=== PATIENT | male | born 1940 | race African-American/Black ===

== ENCOUNTER 2017-08-11 15:20 | Emergency (ER) | payer MEDICARE, OTHER ==
[2017-08-11] MEDS ORDERED: CEFTRIAXONE 1 GM/D5W RTU 1 GM/50 ML RTUPB IV ONE (16:34)
--- NOTE | 2017-08-11 17:12 | ER Document Report ---
ED General - General Chief Complaint: Wound Infection Stated Complaint: WEAKNESS Time Seen by Provider: 08/11/17 16:32 Notes: Patient said he had a "spell" today about 11 AM to 12 noon. Says he is vomited about 3 or 4 times and is feeling weak. He "dropped his head" which sounds as if he might have passed out. His says he does this whenever he has an injury. He did injure his right hand in the big [place] outside the house when he went to fall Monday. says the hand was dirty with mud. He has a 2 cm laceration of the palmar aspect of the thenar webspace of the right hand.. There is adjacent soft tissue swelling of the hand around the base of the thumb and in the dorsal web space. Patient says the spell lasted anywhere from 30-60 minutes and that he feels much better now. At no time did he have any chest pains, abdominal pain, or headache. Also did not have any fever, although the says that he had sweat on his forehead. TRAVEL OUTSIDE OF THE [place] IN LAST 30 DAYS: No Past Medical History - Social History Smoking Status: Former Smoker Chew tobacco use (# tins/day): No Frequency of alcohol use: None Drug Abuse: None Family History: Reviewed & Not Pertinent Patient has suicidal ideation: No Patient has homicidal ideation: No - Past Medical History Cardiac Medical History: Reports: Other - Has a pacemaker. Endocrine Medical History: Reports: Hx Diabetes Mellitus Type 1 Past Surgical History: Reports: Hx Cardiac Surgery - pacemaker, Hx Kidney ( Renal Surgery) Review of Systems - Review of Systems Notes: REVIEW OF SYSTEMS: CONSTITUTIONAL : Denies fever. Did have some heavy sweats on his brow. EENT: Denies eye, ear, nose or mouth or throat pain or other symptoms. CARDIOVASCULAR: Denies chest pain. RESPIRATORY: Denies cough, chest congestion, or shortness of breath. GASTROINTESTINAL: Denies abdominal pain or nausea, vomiting, or diarrhea. GENITOURINARY: Denies difficulty or painful urinating, urinary frequency, blood in urine. MUSCULOSKELETAL: Denies back or neck pain. Denies joint pain or swelling. Injury/laceration to right hand, as described previously. SKIN: Denies rash or skin lesions. NEUROLOGICAL: Denies LOC or altered mental status. Denies headache. Denies sensory loss or motor deficits. ALL OTHER SYSTEMS REVIEWED AND NEGATIVE. Physical Exam - Vital signs Vitals: Pulse Resp BP Pulse Ox 72 18 119/77 95 08/11/17 15:30 08/11/17 15:30 08/11/17 15:30 08/11/17 15:30 Interpretation: No: Febrile - Notes Notes: PHYSICAL EXAMINATION: GENERAL: Well-appearing, in no acute distress. Alert. Answers questions appropriately. HEAD: Atraumatic, normocephalic. EYES: Pupils equal round and reactive to light, extraocular movements intact. ENT: oropharynx clear without exudates. Moist mucous membranes. NECK: Normal range of motion, supple. No carotid bruits heard. LUNGS: Breath sounds clear and equal bilaterally. HEART: Regular rate and rhythm without murmurs. ABDOMEN: Soft, nontender. No guarding or rebound. No pulsatile masses. BACK: No tenderness throughout entire back. EXTREMITIES: Normal range of motion without pain. He has a 2 cm laceration of the palmar aspect of the thenar webspace of the right hand.. There is adjacent soft tissue swelling of the hand around the base of the thumb and in the dorsal web space. He does not have any pain with forced extension of the flexor tendons to any of the 5 digits of the right hand. The wound does not appear to be draining any purulent or other material. No fluid collection felt. Superficially, there are stains from reddish antiseptic which is probably some iodine-containing preparation, Merthiolate, etc. I do not think this wound is significantly infected, if at all. There is a lot of soft tissue swelling probably from patient keeping his hand too low and overusing it. There is no erythema like cellulitis and no lymphangitis. NEUROLOGICAL: Normal speech, normal gait. Normal sensory, motor, and reflex exams. Awake, alert, and oriented x3. Cranial nerves normal. PSYCH: Normal mood, normal affect. SKIN: Warm, dry, no rashes. Course - Vital Signs Vital signs: Temp Pulse Resp BP Pulse Ox 72 24 H 143/89 H 95 08/11/17 15:30 08/11/17 16:01 08/11/17 16:00 08/11/17 16:01 - Laboratory Result Diagrams: 08/11/17 17:35 08/11/17 17:35 Laboratory results interpreted by me: 08/11/17 17:35 RBC 3.82 L Hgb 12.2 L Hct 36.8 L Lymphocytes % 10.9 L - Diagnostic Test Radiology results interpreted by me: 08/11/17 18:52 Hand x-ray is normal. - EKG Interpretation by Me EKG shows normal: Sinus rhythm Rate: Normal Rhythm: NSR - At 80 Additional EKG results interpreted by me: 08/11/17 18:53 EKG is normal. Discharge - Discharge Clinical Impression: Laceration of right hand, Possible syncopal episode Condition: Stable Disposition: HOME, SELF-CARE Additional Instructions: NON-SUTURED LACERATION: Your laceration did not require suturing. Some lacerations cannot be sutured because of increased infection risk, while others simply don't need stitches because they are shallow or very short. Your injury should be protected while it heals. Usually complete healing takes 10 to 14 days. Keep the dressing clean and dry, and change it every day. If you notice increasing pain, redness, swelling, drainage, or tender lumps in the armpit or groin above the injury, infection may be present. You should call the doctor at once. SOAP CLEANSING: Gently wash the wound daily using a mild soap (like Ivory, Phisoderm, Neutrogena). Use warm water, rubbing gently until all debris, ooze, and crusting have been washed from the wound. Allow to dry briefly (about 10 minutes) after cleaning. Repeat this cleansing at least three times a day for the first two days and then once or twice a day. PROPHYLACTIC ANTIBIOTIC: The antibiotics which have been prescribed are designed to decrease the risk of infection. Only certain types of wounds benefit from this -- the typical cut, scrape, or burn DOES NOT require antibiotics. Of course, infection can still occur despite the use of prophylactic antibiotics. Your wound will heal with less chance of an infectious complication if you take the medication as directed. The most important dose is the FIRST dose, so don't delay filling the prescription! Rocephin You have been given an injection of an antibiotic called Rocephin ( ceftriaxone). Sometimes the injection must be combined with antibiotic pills. For some infections, such as an uncomplicated ear infection, Rocephin provides all the antibiotic that's needed. The antibiotic will be in your body for about two days. For serious infections, we usually repeat doses of Rocephin daily. Side effects are very unusual following a shot. Women may develop vaginal yeast infections, and babies can get yeast (thrush) in the mouth following the use of antibiotics. Contact your physician if you have symptoms with this medication. Allergy to this antibiotic can result in hives, wheezing, faintness, or itching. If symptoms of allergy occur, call the doctor at once. Cephalexin The antibiotic you've been prescribed is a member of the cephalosporin class. This type of antibiotic covers a wide variety of infections, including those of the skin, lungs, and urinary tract. It's useful for staph infections. This antibiotic is slightly similar to the penicillin family. In rare cases , a person who is allergic to penicillin will also be allergic to this medication. If you have had a severe allergic reaction to penicillin, and have not taken this antibiotic since that time, notify your doctor. Antibiotics which cover many germs ("broad spectrum" antibiotics) are more likely to cause diarrhea or "yeast" infections. Women prone to vaginal yeast problems may suffer an attack after taking this antibiotic. In infants, oral thrush (white spots "stuck" on the cheek) or yeast diaper rash may result. See your doctor if these problems occur. Call at once if you develop itching, hives , shortness of breath, or lightheadedness. FOLLOW-UP CARE: If you have been referred to another physician for follow-up care, call that physicians office for an appointment as you were instructed. If you experience a significant change in your laceration, or if you are concerned there may be an infection (swelling, redness, drainage, increasing tenderness, red streaks, tender lumps in the armpit or groin above the laceration, or fever) , return to the Emergency Department immediately re-evaluation. Watch for signs of infection. If the hand begins to swell worse in spite of elevating it, or if you develop redness or red streaks or fever or increasing pain in your hand, return immediately for us to reassess her condition. If your hand is showing no improvement by Monday, return for us to recheck. If your hand is worse over the weekend, do not wait until Monday, but return for us to reassess her hand. If your hand is improving each day, you do not need to return for reevaluation. Prescriptions: Cephalexin Monohydrate [Keflex 500 mg Capsule] 500 mg PO QID 7 Days capsule Referrals: LASHONDA DE LA CRUZ MD [Primary Care Provider] - Follow up as needed
--- NOTE | 2017-08-11 17:41 | RADIOLOGY REPORT (SQ) ---
EXAM DESCRIPTION: HAND RIGHT 3 VIEWS COMPLETED DATE/TIME: 08/11/2017 5:15 pm REASON FOR STUDY: Injured right hand with laceration in web space COMPARISON: None. EXAM PARAMETERS: NUMBER OF VIEWS: Three views. TECHNIQUE: AP, lateral and oblique radiographic images acquired of the right hand. LIMITATIONS: None. FINDINGS: MINERALIZATION: Normal. BONES: No acute fracture or dislocation. No worrisome bone lesions. JOINTS: Diffuse osteoarthritis. SOFT TISSUES: No soft tissue swelling. No foreign body. OTHER: No other significant finding. IMPRESSION: NO RADIOGRAPHIC EVIDENCE OF ACUTE INJURY. TECHNICAL DOCUMENTATION: JOB ID: [id number] [employer]- All Rights Reserved
[2017-08-11 17:50] LABS: ABSOLUTE BASOPHILS # (AUTO) 0.1 10^3/uL (0.0-0.2); ABSOLUTE EOSINOPHILS # (AUTO) 0.1 10^3/uL (0.0-0.6); ABSOLUTE LYMPHOCYTES (AUTO) 0.9 10^3/uL (0.5-4.7); ABSOLUTE MONOCYTES (AUTO) 0.8 10^3/uL (0.1-1.4); ABSOLUTE NEUT (AUTO) 6.1 10^3/uL (1.7-8.2); BASOPHILS % (AUTO) 0.7 % (0-2); HEMATOCRIT 36.8 % (37.9-51.0); HEMOGLOBIN 12.2 g/dL (13.5-17.0); HGB HCT DIFFERENCE -0.2; LYMPHOCYTES % (AUTO) 10.9 % (13-45); MEAN CORPUSCULAR HGB CONC 33.2 g/dL (32.0-36.0); MEAN CORPUSCULAR VOLUME 96 fl (80-97); MONOCYTES % (AUTO) 10.3 % (3-13); RED BLOOD COUNT 3.82 10^6/uL (4.35-5.55); RED CELL DISTRIBUTION WIDTH 13.4 % (11.5-14.0); SEGMENTED NEUTROPHILS % (AUTO) 77.1 % (42-78); WHITE BLOOD COUNT 7.9 10^3/uL (4.0-10.5)
[2017-08-11 19:08] VITALS: BP 146/77
--- NOTE | 2017-08-11 22:51 | EKG REPORT ---
SEVERITY:- ABNORMAL ECG - ATRIAL-SENSED VENTRICULAR-PACED COMPLEXES LEFT ANTERIOR FASCICULAR BLOCK LEFT VENTRICULAR HYPERTROPHY : Confirmed by: Fátima Prince 11-Aug-2017 22:50:48
[2017-08-11 23:30] LABS: CALCIUM 9.3 mg/dL (8.4-10.2); GLUCOSE 231 mg/dL (75-110)
[2017-08-11 23:31] LABS: BLOOD UREA NITROGEN 22 mg/dL (7-20); CARBON DIOXIDE 24 mmol/L (22-30); CHLORIDE 103 mmol/L (98-107); CREATININE RESULT 1.39 mg/dL (0.52-1.25); POTASSIUM 6.2 mmol/L (3.6-5.0)
[2017-08-11 23:32] LABS: ALANINE AMINOTRANSFERASE 33 U/L (21-72); ALBUMIN 3.9 g/dL (3.5-5.0); ALKALINE PHOSPHATASE 82 U/L (38-126); ANION GAP 12 (5-19); ASPARTATE AMINO TRANSFERASE 58 U/L (17-59); BILIRUBIN,DIRECT 1.1 mg/dL (0.0-0.4)
[2017-08-11 23:33] LABS: TOTAL PROTEIN 7.8 g/dL (6.3-8.2)
== END 2017-08-11 19:10 | disposition home or self-care (01) ==
LOC: ER 15:20
DX: S61.411A Laceration without foreign body of right hand, initial encounter (principal); T81.4XXA Infection following a procedure, initial encounter; R11.10 Vomiting, unspecified; L08.9 Local infection of the skin and subcutaneous tissue, unspecified; R53.1 Weakness; M79.89 Other specified soft tissue disorders; Z87.891 Personal history of nicotine dependence; X58.XXXA Exposure to other specified factors, initial encounter
CPT/HCPCS: 93005; 99284; 96365; 36415; 87070; 87205; 85025; 87077; 80053; 87186; 73130; 93010; J0696

== ENCOUNTER → 2017-11-16 | Outpatient (CLI) | payer MEDICARE ==
--- NOTE | 2017-11-16 14:11 | WOMENS IMAGING REPORT ---
EXAM DESCRIPTION: BONE DENSITY HIP/SPINE COMPLETED DATE/TIME: 11/16/2017 1:33 pm REASON FOR STUDY: OSTEOPOROSIS M80.032A AGE-REL OSTEOPOR W CURRENT PATH FRACTURE, L FOREARM M81.0 AGE-RELATED OSTEOPOROSIS W/O CURRENT PATHOLOGICAL FRAC COMPARISON: None. TECHNIQUE: Dual-Energy X-ray Absorptiometry (DEXA) of the AP Spine and Hip. LIMITATIONS: None. FINDINGS: LUMBAR SPINE: The bone mineral density (BMD) measured from L1-L4 in the AP projection correlates with a T-score of 2, which is normal as defined by the World Health Organization. HIP: The bone mineral density (BMD) measured in the left hip correlates with a T-score of -1.2 in the femo ral neck, which is osteopenia as defined by the World Health Organization. IMPRESSION: 1. LUMBAR SPINE: NORMAL. 2. HIP: OSTEOPENIA. COMMENT: The World Health Organization defines low BMD as follows: T-score: Normal: Greater than -1.0 Osteopenia: Between -1.0 and -2.5 Osteoporosis: Less than -2.5 without fractures Established osteoporosis: Less than -2.5 with fractures In general, you may wish to consider: Diagnosis Treatment Follow-up DEXA Normal BMD Prevention 2-3 years Osteopenia Prevention/Therapy 1-2 years Osteoporosis Therapy Yearly TECHNICAL DOCUMENTATION: JOB ID: [id number]- All Rights Reserved
== END ==
LOC: WI 09:53
PROVIDERS: ATTEND Internal Medicine
DX: M80.032A Age-related osteoporosis with current pathological fracture, left forearm, initial encounter for fracture (principal)
CPT/HCPCS: 77080

== ENCOUNTER → 2018-11-13 | Outpatient (CLI) | payer MEDICARE ==
--- NOTE | 2018-11-13 09:42 | RADIOLOGY REPORT (SQ) ---
EXAM DESCRIPTION: U/S RETROPERITON (RENAL/AORTA) COMPLETED DATE/TIME: 11/13/2018 9:28 am REASON FOR STUDY: R94.4 ABNORMAL RESULTS OF KIDNEY FUNCTION STUDIES R94.4 ABNORMAL RESULTS OF KIDNE Y FUNCTION STUDIES COMPARISON: None. TECHNIQUE: Dynamic and static grayscale images acquired of the kidneys and bladder and recorded on P ACS. Additional selected color Doppler and spectral images recorded. LIMITATIONS: None. FINDINGS: RIGHT KIDNEY: Normal size. Normal echogenicity. Small cortical cysts. No solid or suspic ious masses. No hydronephrosis. No calcifications. LEFT KIDNEY: Surgically absent. BLADDER: No masses. OTHER FINDINGS: No other significant finding. IMPRESSION: POST LEFT NEPHRECTOMY. SMALL CORTICAL CYSTS IN THE RIGHT KIDNEY. OTHERWISE UNREMARKABL E RENAL AND BLADDER ULTRASOUND. TECHNICAL DOCUMENTATION: JOB ID: [id number] [employer]- All Rights Reserved Reading location - IP/workstation name: [email or web address]
== END ==
LOC: RAD 10:26
PROVIDERS: ATTEND Internal Medicine
DX: R94.4 Abnormal results of kidney function studies (principal); Q61.02 Congenital multiple renal cysts
CPT/HCPCS: 76770

== ENCOUNTER 2020-03-31 10:32 | Inpatient (IN) | payer MEDICARE ==
[2020-03-31] MEDS ORDERED: NORMAL SALINE 1000 ML 1,000 ML IV ONE ×2 (10:41)
--- NOTE | 2020-03-31 10:41 | ER Document Report ---
ED Medical Screen (RME) - General Chief Complaint: Low Blood Pressure Stated Complaint: LOW BLOOD PRESSURE Time Seen by Provider: 03/31/20 10:39 Primary Care Provider: LASHONDA DE LA CRUZ MD [Primary Care Provider] - Follow up as needed Mode of Arrival: Medic Information source: Patient Notes: 79-year-old male presented to ED for syncopal episode. He states he got up he felt fine went to breakfast and went to surgery care with his . She states his came back to check on him because he was waiting in the car and she found him passed out with his foot on the gas. States she had to take his foot off the gas and turn the car off and called 911. Patient states he has not felt any shortness of breath any pain in any funny feelings. He does have a pace maker defibrillator. This will need to get evaluated. He does have very low blood pressure. Lungs are clear at this time. Will order syncopal work-up and IV fluids. I have greeted and performed a rapid initial assessment of this patient. A comprehensive ED assessment and evaluation of the patient, analysis of test results and completion of medical decision making process will be conducted by an additional ED providers. TRAVEL OUTSIDE OF THE [place] IN LAST 30 DAYS: No Past Medical History - Past Medical History Cardiac Medical History: Denies: Hx Coronary Artery Disease Endocrine Medical History: Reports: Hx Diabetes Mellitus Type 1 Renal/ Medical History: Denies: Hx Peritoneal Dialysis Past Surgical History: Reports: Hx Cardiac Surgery - pacemaker, Hx Kidney (Renal Surgery) Doctor's Discharge - Discharge Referrals: LASHONDA DE LA CRUZ MD [Primary Care Provider] - Follow up as needed
[2020-03-31 10:59] LABS: ABSOLUTE EOSINOPHILS # (AUTO) 0.2 10^3/uL (0.0-0.6); ABSOLUTE MONOCYTES (AUTO) 0.5 10^3/uL (0.1-1.4); ABSOLUTE NEUT (AUTO) 2.9 10^3/uL (1.7-8.2); EOSINOPHILS % (AUTO) 5.1 % (0-6); HEMATOCRIT 33.1 % (37.9-51.0); LYMPHOCYTES % (AUTO) 21.6 % (13-45); MEAN CORPUSCULAR HEMOGLOBIN 32.2 pg (27.0-33.4); MEAN CORPUSCULAR HGB CONC 33.3 g/dL (32.0-36.0); MEAN CORPUSCULAR VOLUME 97 fl (80-97); PLATELET COUNT 123 10^3/uL (150-450); RED BLOOD COUNT 3.42 10^6/uL (4.35-5.55); RED CELL DISTRIBUTION WIDTH 13.2 % (11.5-14.0); SEGMENTED NEUTROPHILS % (AUTO) 61.3 % (42-78); TOTAL CELLS COUNTED % (AUTO) 100 %; WHITE BLOOD COUNT 4.7 10^3/uL (4.0-10.5)
[2020-03-31 11:16] LABS: ALBUMIN 3.5 g/dL (3.5-5.0); ALKALINE PHOSPHATASE 88 U/L (38-126); ANION GAP 9 (5-19); ASPARTATE AMINO TRANSFERASE 24 U/L (17-59); BLOOD UREA NITROGEN 45 mg/dL (7-20); CALCIUM 8.9 mg/dL (8.4-10.2); CARBON DIOXIDE 25 mmol/L (22-30); CHLORIDE 99 mmol/L (98-107); CREATINE KINASE 165 U/L (55-170); POTASSIUM 3.4 mmol/L (3.6-5.0); TOTAL PROTEIN 6.9 g/dL (6.3-8.2)
[2020-03-31 11:26] LABS: CREATINE KINASE MB 2.59 ng/mL (<4.55); TROPONIN I 0.024 ng/mL
[2020-03-31 11:50] LABS: GLUCOSE 401 mg/dL (75-110)
--- NOTE | 2020-03-31 12:12 | EKG REPORT ---
SEVERITY:- ABNORMAL ECG - ATRIAL-SENSED VENTRICULAR-PACED RHYTHM : Confirmed by: Demarcus Ruth MD 31-Mar-2020 12:11:27
[2020-03-31 12:38] LABS: APPEARANCE,URINE CLEAR; BILIRUBIN,URINE NEGATIVE (NEGATIVE); COLOR,URINE STRAW; GLUCOSE, URINE >=500 mg/dL (NEGATIVE); KETONES,URINE NEGATIVE (NEGATIVE); LEUKOCYTE ESTERASE,URINE NEGATIVE (NEGATIVE); NITRITE,URINE NEGATIVE (NEGATIVE); PROTEIN,URINE NEGATIVE (NEGATIVE); UROBILINOGEN,URINE NEGATIVE mg/dL (<2.0)
--- NOTE | 2020-03-31 13:38 | ER Document Report ---
ED General - General Chief Complaint: Syncope Stated Complaint: LOW BLOOD PRESSURE Time Seen by Provider: 03/31/20 10:39 Primary Care Provider: LASHONDA DE LA CRUZ MD [Primary Care Provider] - Follow up as needed Mode of Arrival: Medic TRAVEL OUTSIDE OF THE [place] IN LAST 30 DAYS: No - HPI Notes: Patient is an 79-year-old female who presents to the emergency department for evaluation after syncopal episode. I obtained information from nurses notes/[facility] note, as well as from patient. Information is not exactly congruent. Evidently the patient was in the car, waiting for his daughter at the surgical center. He states his was with him, and he had a near syncopal episode. [facility] note states that the patient was alone in the car, found him passed out, and had to remove his foot from the gas pedal. The patient states to me this is not a n ew occurrence. He states it does not happen frequently, but has happened in the past. He did eat breakfast this morning, states his blood sugar was over 200 when he checked it. He admits he has not been watching his diet as closely as he used to. He denies any recent fevers or chills. States he had a normal bowel movement this morning. He said no chest pain or shortness of breath. No coughing. He is been eating and drinking normally, no vomiting. No urinary symptoms. No cuts or rashes. He states that he recently had a change in his insulin, but otherwise his medications have been stable and he has been taking them as prescribed. Denies any pain at this time. - Related Data Allergies/Adverse Reactions: No Known Allergies Allergy (Verified 03/31/20 10:49) Home Medications: asa, carvedilol, famotidine, torsemide, glimepiride, isosorbide, lantus, losartan, simvastatin Past Medical History - General Information source: Patient - Social History Smoking Status: Never Smoker Chew tobacco use (# tins/day): No Frequency of alcohol use: None Drug Abuse: None Family History: DM, Malignancy Patient has homicidal ideation: No - Past Medical History Cardiac Medical History: Reports: Hx Congestive Heart Failure, Hx Heart Attack, Hx Hypercholesterolemia, Hx Hypertension Denies: Hx Coronary Artery Disease Endocrine Medical History: Reports: Hx Diabetes Mellitus Type 2 Renal/ Medical History: Reports: Hx Renal Insufficiency. Denies: Hx Peritoneal Dialysis Malignancy Medical History: Reports Hx Renal (Kidney) Cancer Past Surgical History: Reports: Hx Cardiac Surgery - pacemaker/defib, Hx Kidney (Renal Surgery) Review of Systems - Review of Systems Cardiovascular: See HPI -: Yes All other systems reviewed and negative Physical Exam - Vital signs Vitals: Resp BP Pulse Ox 20 94/66 L 91 L 03/31/20 10:35 03/31/20 10:35 03/31/20 10:35 - Notes Notes: This is a pleasant 79-year-old male appears stated age, no acute distress. He is lying comfortably in the bed. Vital signs reviewed, please refer to chart. Head is normocephalic, atraumatic. Pupils equal round, reactive to light. Neck is supple without meningismus. Heart is regular rate and rhythm. Lungs are clear to auscultation bilaterally. Pacer defibrillator noted in left upper chest, well-healed surgical scar overlying. No tenderness. Abdomen is soft, nontender, normoactive bowel sounds throughout. Extremities without cyanosis, clubbing. Posterior calves are nontender. Peripheral pulses are equal. Skin is warm and dry. Patient is awake, alert, neurological exam is nonfocal. Course - Re-evaluation Re-evalutation: 03/31/20 13:37 Patient presents to the emergency department for evaluation. EMS noted him to be syncopal and hypotensive, he was given IV fluids. His pressures improved significantly since being here. Laboratory investigations reveal abnormal renal function, but I do not suspect this is new at this time. Patient does have a history of congestive heart failure, I am not inclined to add more fluids at this time, as he is currently normotensive with a blood pressure of 131/75. Because of his low blood pressure, I am inclined to evaluate for possible sep sis. Urine culture, blood cultures, chest x-ray ordered. Awaiting interrogation of pacer defibrillator. Patient is stable, we will continue to monitor. 03/31/20 15:49 Patient's defibrillator interrogation revealed no signs of any events. He was stable here. His blood sugar is poorly controlled, has been as an outpatient as well. I was able to speak to his , who presented to the ED. She states the patient was in fact out for approximately 3 to 5 minutes. She states he became diaphoretic beforehand, then passed out. I do not have a clear etiology for this transient hypotension. His cultures are pending. His chest x-ray is unremarkable. The patient is currently stable, but I do believe further observation is appropriate. I spoke with Dr. De La Cruz who agrees. He also notes that the patient's last creatinine was 1.6, 1.7. Patient will be observed on IM. - Vital Signs Vital signs: Temp Pulse Resp BP Pulse Ox 97.8 F 21 H 126/87 H 98 03/31/20 10:55 03/31/20 14:31 03/31/20 14:31 03/31/20 14:31 - Laboratory Result Diagrams: 03/31/20 10:40 03/31/20 10:40 Laboratory results interpreted by me: 03/31/20 03/31/20 03/31/20 10:40 10:40 12:00 RBC 3.42 L Hgb 11.0 L Hct 33.1 L Plt Count 123 L Sodium 133.2 L Potassium 3.4 L BUN 45 H Creatinine 2.19 H Est GFR ( Amer) 35 L Est GFR (MDRD) Non-Af 29 L Glucose 401 H* Urine Glucose (UA) >=500 H - Diagnostic Test Radiology reviewed: Reports reviewed - EKG Interpretation by Me Additional EKG results interpreted by me: 03/31/20 13:37 Atrial sensed ventricular paced rhythm at 72 bpm. Discharge - Discharge Clinical Impression: Abnormal renal function, Hyperglycemia Syncope Qualifiers: Encounter type: initial encounter Condition: Stable Disposition: ADMITTED OBSERVATION Admitting Provider: Jyothi - To send him for Unit Admitted: IMCU Referrals: LASHONDA DE LA CRUZ MD [Primary Care Provider] - Follow up as needed
--- NOTE | 2020-03-31 14:59 | RADIOLOGY REPORT (SQ) ---
EXAM DESCRIPTION: CHEST SINGLE VIEW IMAGES COMPLETED DATE/TIME: 03/31/2020 2:42 pm REASON FOR STUDY: hypotension, syncope COMPARISON: 09/25/2019 EXAM PARAMETERS: NUMBER OF VIEWS: One view. TECHNIQUE: Single frontal radiographic view of the chest acquired. RADIATION DOSE: NA LIMITATIONS: None. FINDINGS: LUNGS AND PLEURA: No opacities, masses or pneumothorax. No pleural effusion. MEDIASTINUM AND HILAR STRUCTURES: No masses. Contour normal. HEART AND VASCULAR STRUCTURES: Heart normal in size. Normal vasculature. BONES: No acute findings. HARDWARE: Pacemaker/ defibrillator. OTHER: No other significant finding. IMPRESSION: NO ACUTE RADIOGRAPHIC FINDING IN THE CHEST. TECHNICAL DOCUMENTATION: JOB ID: [id number] 2010 [employer]- All Rights Reserved Reading location - IP/workstation name: [email or web address]
[2020-03-31] MEDS: NORMAL SALINE 1000 ML 1,000 ML IV PRN (19:00)
[2020-03-31] MEDS ORDERED: DEXTROSE 50%-WATER 25 GM/50 ML DISP.SYRIN IV PRN ×2 (20:19)
[2020-03-31] MEDS ORDERED: DEXTROSE 40% GEL 15 GM TUBE PO PRN ×2 (20:19)
[2020-03-31] MEDS ORDERED: GLUCAGON,HUMAN RECOMB 1 MG INJ IM PRN (20:19)
[2020-03-31] MEDS ORDERED: (PENDING PHARMACY ID) (Dapagliflozin Propanediol [Farxiga] 10 MG) PO SCH (20:30)
[2020-03-31] MEDS ORDERED: (PENDING PHARMACY ID) (Losartan/Hydrochlorothiazide [Hyzaar 100-12.5 Tablet] 1 TAB) PO SCH (20:30)
[2020-03-31] MEDS ORDERED: (PENDING PHARMACY ID) (Magnesium Oxide [Magnesium] 250 MG) PO SCH (20:30)
[2020-03-31 21:00] LABS: FREE T4 (FREE THYROXINE) 0.8 ng/dL (0.78-2.19)
[2020-03-31 21:14] LABS: THYROID STIMULATING HORMONE 1.91 uIU/mL (0.47-4.68)
[2020-03-31] MEDS: HEPARIN SOD (PORCINE) 5,000 UNIT/ML 1 ML VIAL SUBCUT SCH (21:55)
[2020-03-31] MEDS ORDERED: (PENDING PHARMACY ID) (Latanoprost/Pf [Latanoprost 0.005% Eye Drop] 1 DROP) OS SCH (22:00)
[2020-03-31] MEDS ORDERED: (PENDING PHARMACY ID) (Simvastatin [Simvastatin] 20 MG) PO SCH (22:00)
[2020-03-31] MEDS ORDERED: TIMOLOL OU SCH (22:00)
[2020-03-31] MEDS ORDERED: DORZOLAMIDE OU SCH (22:00)
[2020-03-31 22:01] LABS: ANION GAP 5 (5-19); BLOOD UREA NITROGEN 36 mg/dL (7-20); CHLORIDE 94 mmol/L (98-107); CREATINE KINASE 67 U/L (55-170); GLUCOSE 104 mg/dL (75-110)
[2020-03-31] MEDS: CHOLECALCIFEROL (D3) 1,000 UNIT (25 MCG) TABLET PO SCH (22:03)
[2020-03-31] MEDS: ISOSORBIDE MONONITRATE 20 MG TABLET PO SCH (22:03)
[2020-03-31] MEDS: ASPIRIN 81 MG TABLET, CHEWABLE PO SCH (22:03)
[2020-03-31] MEDS: SIMVASTATIN 10 MG TABLET PO SCH (22:04)
[2020-03-31] MEDS: INSULIN LISPRO 100 UNIT/ML 3 ML VIAL SUBCUT SCH (22:04)
[2020-03-31] MEDS: FERROUS SULFATE 325 MG TABLET PO SCH (22:04)
[2020-03-31] MEDS: CARVEDILOL 12.5 MG TABLET PO SCH (22:04)
[2020-03-31 22:05] LABS: POTASSIUM 5.2 mmol/L (3.6-5.0)
[2020-03-31] MEDS: BRIMONIDINE TARTRATE 0.2% OPH SOLN 5 ML OU SCH (22:05)
[2020-03-31] MEDS: DORZOLAMIDE HCL 2%/TIMOLOL MALEAT 0.5% OPH SOLN 10 ML OU SCH (22:05)
[2020-03-31] MEDS: LATANOPROST 0.005% OPH SOLN 2.5 ML OS SCH (22:06)
[2020-03-31 22:09] LABS: CARBON DIOXIDE 36 mmol/L (22-30)
[2020-03-31 22:10] LABS: CREATINE KINASE MB 0.98 ng/mL (<4.55)
[2020-03-31 22:12] LABS: TROPONIN I < 0.012 ng/mL
[2020-04-01 03:32] LABS: ABSOLUTE EOSINOPHILS # (AUTO) 0.2 10^3/uL (0.0-0.6); ABSOLUTE LYMPHOCYTES (AUTO) 1.4 10^3/uL (0.5-4.7); ABSOLUTE MONOCYTES (AUTO) 0.7 10^3/uL (0.1-1.4); ABSOLUTE NEUT (AUTO) 2.4 10^3/uL (1.7-8.2); BASOPHILS % (AUTO) 0.8 % (0-2); EOSINOPHILS % (AUTO) 5.1 % (0-6); HEMATOCRIT 34.6 % (37.9-51.0); HEMOGLOBIN 11.7 g/dL (13.5-17.0); LYMPHOCYTES % (AUTO) 29.9 % (13-45); MEAN CORPUSCULAR HEMOGLOBIN 32.3 pg (27.0-33.4); MEAN CORPUSCULAR HGB CONC 33.8 g/dL (32.0-36.0); MEAN CORPUSCULAR VOLUME 96 fl (80-97); MONOCYTES % (AUTO) 13.8 % (3-13); PLATELET COUNT 117 10^3/uL (150-450); RED BLOOD COUNT 3.62 10^6/uL (4.35-5.55); RED CELL DISTRIBUTION WIDTH 13.1 % (11.5-14.0); SEGMENTED NEUTROPHILS % (AUTO) 50.4 % (42-78); TOTAL CELLS COUNTED % (AUTO) 100 %; WHITE BLOOD COUNT 4.8 10^3/uL (4.0-10.5)
[2020-04-01 03:59] LABS: CREATINE KINASE MB 2.2 ng/mL (<4.55); TROPONIN I 0.022 ng/mL
[2020-04-01] MEDS: NORMAL SALINE 1000 ML 1,000 ML IV PRN ×3 (04:15→23:38)
[2020-04-01] MEDS: HEPARIN SOD (PORCINE) 5,000 UNIT/ML 1 ML VIAL SUBCUT SCH ×3 (05:18→21:22)
[2020-04-01] MEDS: INSULIN LISPRO 100 UNIT/ML 3 ML VIAL SUBCUT SCH ×4 (09:26→21:27)
[2020-04-01] MEDS: GLIMEPIRIDE 1 MG TABLET PO SCH (09:28)
[2020-04-01] MEDS: FERROUS SULFATE 325 MG TABLET PO SCH (09:28)
[2020-04-01] MEDS: CHOLECALCIFEROL (D3) 1,000 UNIT (25 MCG) TABLET PO SCH (09:28)
[2020-04-01] MEDS: CARVEDILOL 12.5 MG TABLET PO SCH ×2 (09:28→21:27)
[2020-04-01] MEDS: HYDROCHLOROTHIAZIDE 12.5 MG TABLET PO SCH (09:28)
[2020-04-01] MEDS: LOSARTAN POTASSIUM 50 MG TABLET PO SCH (09:28)
[2020-04-01] MEDS: ASPIRIN 81 MG TABLET, CHEWABLE PO SCH (09:28)
[2020-04-01] MEDS: ISOSORBIDE MONONITRATE 20 MG TABLET PO SCH ×2 (09:29→21:27)
[2020-04-01] MEDS: DORZOLAMIDE HCL 2%/TIMOLOL MALEAT 0.5% OPH SOLN 10 ML OU SCH ×2 (09:30→21:28)
[2020-04-01] MEDS: BRIMONIDINE TARTRATE 0.2% OPH SOLN 5 ML OU SCH ×3 (09:30→17:15)
[2020-04-01 09:55] LABS: CREATINE KINASE MB 2.12 ng/mL (<4.55); TROPONIN I 0.019 ng/mL
[2020-04-01] MEDS: INSULIN GLARGINE,HUM.REC.ANLOG 1,000 UNIT/10 ML VIAL SUBCUT SCH (10:42)
[2020-04-01] MEDS: CEFTRIAXONE 1 GM/D5W RTU 1 GM/50 ML RTUPB IV SCH (12:43)
--- NOTE | 2020-04-01 18:01 | PDOC H&P ---
History of Present Illness Admission Date/PCP: 03/31/20 16:18 LASHONDA DE LA CRUZ MD History of Present Illness: JORGE OSPINA is a 79 year old male, He has a history of recently poorly controlled diabetes, the blood sugar has been erratic lately and made efforts to prescribe evidence-based medication including GLP-1 agonist, SGLT 1 inhibitor unfortunately patient medical insurance does not cover this medication or patient co-pay is too high for patient to afford it.The history of his presentation is not very clear but it seems that he had episode of loss of consciousness not sure if this was related to his uncontrolled diabetes or if it is cardiac related. He has a pacemaker, this was interrogated in the emergency room seems to be in good working condition. He also had a transient low blood pressure according to the history when he was transported by EMS, he was given IV fluid with normalization of the blood pressure. 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 he has only 1 functioning kidney, he has baseline chronic kidney disease stage III, the base creatinine is about 1.6 ,in the emergency room when he presented the serum creatinine was 2 suggesting a prerenal component most likely dehydration most likely loss of volume partly from uncontrolled diabetes or exposure to high ambient temperature Past Medical History Cardiac Medical History: Reports: Myocardial Infarction, Hyperlipidema, Hypertension Denies: Coronary Artery Disease Endocrine Medical History: Reports: Diabetes Mellitus Type 2 Malignancy Medical History: Reports: Renal (Kidney) Cancer Social History Smoking Status: Never Smoker Electronic Cigarette use?: No Frequency of Alcohol Use: None Hx Recreational Drug Use: No Drugs: None Hx Prescription Drug Abuse: No Family History Family History: DM, Malignancy Parental Family History Reviewed: Yes Children Family History Reviewed: Yes Sibling(s) Family History Reviewed.: Yes Medication/Allergy Home Medications: Aspirin [Aspirin 81 mg Chewable Tablet] 81 mg PO DAILY 03/31/20 Brimonidine Tartrate [Alphagan 0.2% Oph Soln 5 ml] 1 drop OU TID 03/31/20 Carvedilol [Coreg 12.5 mg Tablet] 12.5 mg PO Q12 03/31/20 Cholecalciferol (Vitamin D3) [Vitamin D3 1000 Unit Tablet] 5,000 unit PO DAILY 03/31/20 Dapagliflozin Propanediol [Farxiga] 10 mg PO DAILY 03/31/20 Dorzolamide/Timolol/Pf [Dorzolamide-Timolol 2%-0.5%] 1 drop OU Q12 03/31/20 Ferrous Sulfate [Feosol 325 mg Tablet] 325 mg PO DAILY 03/31/20 Furosemide [Lasix 20 mg Tablet] 20 mg PO QAM 03/31/20 Glimepiride [Amaryl] 2 mg PO DAILY 03/31/20 Insulin Glargine,Hum.rec.anlog [Lantus Insulin 100 Unit/mL Insulin Pen] 50 unit SUBCUT DAILY 03/31/20 Isosorbide Mononitrate [Ismo 20 Mg Tablet] 20 mg PO Q12 03/31/20 Latanoprost/Pf [Latanoprost 0.005% Eye Drop] 1 drop OS QHS 03/31/20 Losartan/Hydrochlorothiazide [Hyzaar 100-12.5 Tablet] 1 tab PO DAILY 03/31/20 Magnesium Oxide [Magnesium] 250 mg PO DAILY 03/31/20 RX: Simvastatin 20 mg PO QHS 03/31/20 Allergies/Adverse Reactions: No Known Allergies Allergy (Verified 03/31/20 10:49) Review of Systems Constitutional: ABSENT: chills, fever(s), headache(s), weight gain, weight loss Eyes: ABSENT: visual disturbances Ears: ABSENT: hearing changes Cardiovascular: ABSENT: chest pain, dyspnea on exertion, edema, orthropnea, palpitations Respiratory: ABSENT: cough, hemoptysis Gastrointestinal: ABSENT: abdominal pain, constipation, diarrhea, hematemesis, hematochezia, nausea, vomiting Genitourinary: ABSENT: dysuria, hematuria Musculoskeletal: ABSENT: joint swelling Integumentary: ABSENT: rash, wounds Neurological: PRESENT: syncope. ABSENT: abnormal gait, abnormal speech, confusion, dizziness, focal weakness Psychiatric: ABSENT: anxiety, depression, homidical ideation, suicidal ideation Endocrine: ABSENT: cold intolerance, heat intolerance, menstrual abnormalities, polydipsia, polyuria Hematologic/Lymphatic: ABSENT: easy bleeding, easy bruising, lymphadenopathy Physical Exam Vital Signs: Temp Pulse Resp BP Pulse Ox 98.1 F 66 18 125/72 94 04/01/20 16:55 04/01/20 16:55 04/01/20 16:55 04/01/20 16:55 04/01/20 16:55 Intake & Output 03/31/20 04/01/20 04/02/20 06:59 06:59 06:59 Intake Total 3200 1138 Output Total 850 425 Balance 2350 713 Weight 96 kg General appearance: PRESENT: no acute distress Head exam: PRESENT: atraumatic, normocephalic Eye exam: PRESENT: PERRLA Ear exam: PRESENT: normal external ear exam Mouth exam: PRESENT: moist, tongue midline Neck exam: PRESENT: full ROM Respiratory exam: PRESENT: clear to auscultation mell Cardiovascular exam: PRESENT: RRR, +S1, +S2 Vascular exam: PRESENT: normal capillary refill GI/Abdominal exam: PRESENT: normal bowel sounds, soft Rectal exam: PRESENT: deferred Neurological exam: PRESENT: alert, CN II-XII grossly intact Psychiatric exam: PRESENT: appropriate affect, normal mood Skin exam: PRESENT: dry, intact, warm Results Laboratory Results: 04/01/20 03:18 03/31/20 21:15 03/31/20 03/31/20 04/01/20 10:40 21:15 03:18 WBC 4.8 RBC 3.62 L Hgb 11.7 L Hct 34.6 L MCV 96 MCH 32.3 MCHC 33.8 RDW 13.1 Plt Count 117 L Seg Neutrophils % 50.4 Sodium 134.6 L Potassium 5.2 H D Chloride 94 L Carbon Dioxide 36 H D Anion Gap 5 BUN 36 H Creatinine 1.79 H Est GFR ( Amer) 44 L Glucose 104 Calcium 9.0 TSH 1.91 Free T4 0.80 03/31/20 15:31 Blood Blood Culture (PCR) - Final Staphylococcus Species 03/31/20 03/31/20 03/31/20 10:40 10:40 21:15 Creatine Kinase 165 67 CK-MB (CK-2) 2.59 Troponin I 0.024 03/31/20 04/01/20 04/01/20 21:15 03:18 03:18 Creatine Kinase 152 CK-MB (CK-2) 0.98 2.20 Troponin I < 0.012 0.022 04/01/20 04/01/20 09:02 09:02 Creatine Kinase 144 CK-MB (CK-2) 2.12 Troponin I 0.019 Impressions: Chest X-Ray 03/31/20 13:32 IMPRESSION: NO ACUTE RADIOGRAPHIC FINDING IN THE CHEST. Assessment & Plan - Diagnosis (1) Syncope Qualifiers: Encounter type: initial encounter Is this a current diagnosis for this admission?: Yes Plan: The etiology of the syncope is not clear, requires 2D echo (2) Uncontrolled diabetes mellitus Qualifiers: Diabetes mellitus type: type 2 Glycemic state: with hyperglycemia Qualified Code(s): E11.65 - Type 2 diabetes mellitus with hyperglycemia Is this a current diagnosis for this admission?: Yes Plan: Hydrate with fluid (3) Acute kidney injury Is this a current diagnosis for this admission?: Yes Plan: Hydrate with fluid
--- NOTE | 2020-04-01 18:06 | PDOC PROGRESS REPORT ---
Subjective Progress Note for:: 04/01/20 Subjective:: Patient seen by the bedside, he feels better today Reason For Visit: ACUTE KIDNEY INJURY, UNCONTROLLED T2DM Physical Exam Vital Signs: Temp Pulse Resp BP Pulse Ox 98.1 F 66 18 125/72 94 04/01/20 16:55 04/01/20 16:55 04/01/20 16:55 04/01/20 16:55 04/01/20 16:55 Intake & Output 03/31/20 04/01/20 04/02/20 06:59 06:59 06:59 Intake Total 3200 1138 Output Total 850 425 Balance 2350 713 Weight 96 kg General appearance: PRESENT: no acute distress Eye exam: PRESENT: PERRLA Respiratory exam: PRESENT: clear to auscultation mell Cardiovascular exam: PRESENT: +S1, +S2 GI/Abdominal exam: PRESENT: soft Neurological exam: PRESENT: alert Results Laboratory Results: 04/01/20 03:18 03/31/20 21:15 03/31/20 03/31/20 04/01/20 10:40 21:15 03:18 WBC 4.8 RBC 3.62 L Hgb 11.7 L Hct 34.6 L MCV 96 MCH 32.3 MCHC 33.8 RDW 13.1 Plt Count 117 L Seg Neutrophils % 50.4 Sodium 134.6 L Potassium 5.2 H D Chloride 94 L Carbon Dioxide 36 H D Anion Gap 5 BUN 36 H Creatinine 1.79 H Est GFR ( Amer) 44 L Glucose 104 Calcium 9.0 TSH 1.91 Free T4 0.80 03/31/20 15:31 Blood Blood Culture (PCR) - Final Staphylococcus Species 03/31/20 03/31/20 03/31/20 10:40 10:40 21:15 Creatine Kinase 165 67 CK-MB (CK-2) 2.59 Troponin I 0.024 03/31/20 04/01/20 04/01/20 21:15 03:18 03:18 Creatine Kinase 152 CK-MB (CK-2) 0.98 2.20 Troponin I < 0.012 0.022 04/01/20 04/01/20 09:02 09:02 Creatine Kinase 144 CK-MB (CK-2) 2.12 Troponin I 0.019 Impressions: Chest X-Ray 03/31/20 13:32 IMPRESSION: NO ACUTE RADIOGRAPHIC FINDING IN THE CHEST. Assessment & Plan - Diagnosis (1) Syncope Qualifiers: Encounter type: initial encounter Is this a current diagnosis for this admission?: Yes Plan: Transthoracic echocardiogram ordered (2) Uncontrolled diabetes mellitus Qualifiers: Diabetes mellitus type: type 2 Glycemic state: with hyperglycemia Qualified Code(s): E11.65 - Type 2 diabetes mellitus with hyperglycemia Is this a current diagnosis for this admission?: Yes (3) Acute kidney injury Is this a current diagnosis for this admission?: Yes Plan: improving - Time Time Spent with patient: 15-24 minutes Level of Care: IMCU
[2020-04-01] MEDS: SIMVASTATIN 10 MG TABLET PO SCH (21:27)
[2020-04-01] MEDS: LATANOPROST 0.005% OPH SOLN 2.5 ML OS SCH (21:28)
--- NOTE | 2020-04-01 23:18 | XCELERA REPORT ---
[address] [address] Transthoracic Echocardiogram Report Name: JORGE OSPINA SR Age: 79 yrs Gender: Male : 1940 Patient Status: Inpatient Patient Location: [facility] Study Date: 04/01/2020 06:21 PM Height: 73 in Weight: 211 lb BSA: 2.2 m2 Procedure: A two-dimensional transthoracic echocardiogram with color flow and Doppler was performed. Study Quality: Good. Reason For Study: syncope History: syncope. Ordering Physician: LASHONDA DE LA CRUZ Performed By: Sammie Dalton Interpretation Summary The left ventricle is normal in size. There is moderate to severe concentric left ventricular hypertrophy. LV EF is > than 60% Left ventricular systolic function is normal. Doppler measurements suggest impaired left ventricular relaxation, which is associated with grade I/IV or mild diastolic dysfunction The left ventricular wall motion is normal. There is no thrombus. No ASD,VSD , or PFO seen. The right ventricle is normal in size and function. The right atrium is normal. The left atrial size is normal. There is no evidence of mitral valve prolapse. There is no vegetation seen on the mitral valve. There is no mitral valve stenosis. There is a mild amount of mitral regurgitation There is no aortic valvular vegetation. There is no aortic valve stenosis There is no LVOT obstruction. No aortic regurgitation is present. There is no tricuspid stenosis. There is a mild amount of tricuspid regurgitation There is mild pulmonary hypertension by echo RVSP is 34 to 39 mm of Hg , with RA mean of 0 to 5. There is no pulmonic valvular stenosis. There is a trace amount of pulmonic regurgitation The aortic root is normal size. There is no pericardial effusion. MMode/2D Measurements & Calculations RVDd: 3.5 cm LVIDd: 4.0 cm FS: 32.9 % Ao root diam: 3.5 cm IVSd: 1.8 cm LVIDs: 2.7 cm EDV(Teich): 69.1 ml Ao root area: 9.8 cm2 LVPWd: 1.5 cm ESV(Teich): 26.3 ml LA dimension: 3.9 cm EF(Teich): 61.9 % Doppler Measurements & Calculations MV E max heidy: MV P1/2t max heidy: Ao V2 max: LV V1 max P.7 cm/sec 74.3 cm/sec 114.4 cm/sec 4.0 mmHg MV A max heidy: MV P1/2t: 114.1 msec Ao max P.2 mmHg LV V1 max: 90.2 cm/sec MVA(P1/2t): 1.9 cm2 99.5 cm/sec MV E/A: 0.82 MV dec slope: 190.8 cm/sec2 MV dec time: 0.28 sec PA V2 max: TR max heidy: MV P1/2t-pr_phl: 59.8 cm/sec 290.5 cm/sec 114.1 msec PA max PG: TR max P.8 mmHg 1.4 mmHg Left Ventricle The left ventricle is normal in size. There is moderate to severe concentric left ventricular hypertrophy. LV EF is > than 60%. Left ventricular systolic function is normal. Doppler measurements suggest impaired left ventricular relaxation, which is associated with grade I/IV or mild diastolic dysfunction. The left ventricular wall motion is normal. There is no thrombus. No ASD,VSD , or PFO seen. Right Ventricle The right ventricle is normal in size and function. Atria The right atrium is normal. The left atrial size is normal. Mitral Valve There is no evidence of mitral valve prolapse. There is no vegetation seen on the mitral valve. There is no mitral valve stenosis. There is a mild amount of mitral regurgitation. Aortic Valve There is no aortic valvular vegetation. There is no aortic valve stenosis. There is no LVOT obstruction. No aortic regurgitation is present. Tricuspid Valve There is no tricuspid stenosis. There is a mild amount of tricuspid regurgitation. There is mild pulmonary hypertension by echo. RVSP is 34 to 39 mm of Hg , with RA mean of 0 to 5. Pulmonic Valve There is no pulmonic valvular stenosis. There is a trace amount of pulmonic regurgitation. Great Vessels The aortic root is normal size. The inferior vena cava appeared small and collapsed with respiration (RAP 0-5 mmHg). Effusions There is no pericardial effusion. : LASHONDA DE LA CRUZ Lakshmi
[2020-04-02] MEDS: HEPARIN SOD (PORCINE) 5,000 UNIT/ML 1 ML VIAL SUBCUT SCH ×3 (05:35→21:15)
[2020-04-02 06:47] LABS: ABSOLUTE EOSINOPHILS # (AUTO) 0.2 10^3/uL (0.0-0.6); ABSOLUTE LYMPHOCYTES (AUTO) 1.4 10^3/uL (0.5-4.7); ABSOLUTE MONOCYTES (AUTO) 0.5 10^3/uL (0.1-1.4); ABSOLUTE NEUT (AUTO) 2.8 10^3/uL (1.7-8.2); BASOPHILS % (AUTO) 0.9 % (0-2); EOSINOPHILS % (AUTO) 3.9 % (0-6); HEMATOCRIT 35.1 % (37.9-51.0); HEMOGLOBIN 11.8 g/dL (13.5-17.0); LYMPHOCYTES % (AUTO) 28.3 % (13-45); MEAN CORPUSCULAR HEMOGLOBIN 31.9 pg (27.0-33.4); MEAN CORPUSCULAR HGB CONC 33.7 g/dL (32.0-36.0); MEAN CORPUSCULAR VOLUME 95 fl (80-97); MONOCYTES % (AUTO) 10.4 % (3-13); PLATELET COUNT 119 10^3/uL (150-450); RED BLOOD COUNT 3.71 10^6/uL (4.35-5.55); RED CELL DISTRIBUTION WIDTH 13.1 % (11.5-14.0); SEGMENTED NEUTROPHILS % (AUTO) 56.5 % (42-78); TOTAL CELLS COUNTED % (AUTO) 100 %; WHITE BLOOD COUNT 4.9 10^3/uL (4.0-10.5)
[2020-04-02] MEDS: INSULIN LISPRO 100 UNIT/ML 3 ML VIAL SUBCUT SCH ×4 (08:53→21:28)
[2020-04-02] MEDS: BRIMONIDINE TARTRATE 0.2% OPH SOLN 5 ML OU SCH ×3 (09:59→17:10)
[2020-04-02] MEDS: CHOLECALCIFEROL (D3) 1,000 UNIT (25 MCG) TABLET PO SCH (09:59)
[2020-04-02] MEDS: DORZOLAMIDE HCL 2%/TIMOLOL MALEAT 0.5% OPH SOLN 10 ML OU SCH ×2 (09:59→21:30)
[2020-04-02] MEDS: INSULIN GLARGINE,HUM.REC.ANLOG 1,000 UNIT/10 ML VIAL SUBCUT SCH (09:59)
[2020-04-02] MEDS: CEFTRIAXONE 1 GM/D5W RTU 1 GM/50 ML RTUPB IV SCH (09:59)
[2020-04-02] MEDS: ISOSORBIDE MONONITRATE 20 MG TABLET PO SCH ×2 (10:01→21:30)
[2020-04-02] MEDS: HYDROCHLOROTHIAZIDE 12.5 MG TABLET PO SCH (10:01)
[2020-04-02] MEDS: MAGNESIUM OXIDE 400 MG TABLET PO SCH (10:02)
[2020-04-02] MEDS: LOSARTAN POTASSIUM 50 MG TABLET PO SCH (10:02)
[2020-04-02] MEDS: CARVEDILOL 12.5 MG TABLET PO SCH ×2 (10:03→21:30)
[2020-04-02] MEDS: ASPIRIN 81 MG TABLET, CHEWABLE PO SCH (10:03)
[2020-04-02] MEDS: GLIMEPIRIDE 1 MG TABLET PO SCH (10:03)
[2020-04-02] MEDS: FERROUS SULFATE 325 MG TABLET PO SCH (10:03)
[2020-04-02] MEDS: NORMAL SALINE 1000 ML 1,000 ML IV PRN (14:58)
--- NOTE | 2020-04-02 20:50 | PDOC PROGRESS REPORT ---
Subjective Progress Note for:: 04/02/20 Subjective:: Patient was admitted for evaluation continues to improve hopefully discharge home tomorrow Reason For Visit: ACUTE KIDNEY INJURY, UNCONTROLLED T2DM Physical Exam Vital Signs: Temp Pulse Resp BP Pulse Ox 98.0 F 70 20 107/60 94 04/02/20 15:27 04/02/20 19:00 04/02/20 15:27 04/02/20 15:27 04/02/20 15:27 Intake & Output 04/01/20 04/02/20 04/03/20 06:59 06:59 06:59 Intake Total 3200 3054 2227 Output Total 850 1175 800 Balance 2350 1879 1427 Weight 96 kg 94.8 kg General appearance: PRESENT: no acute distress Eye exam: PRESENT: PERRLA Respiratory exam: PRESENT: clear to auscultation mell Cardiovascular exam: PRESENT: +S1, +S2 GI/Abdominal exam: PRESENT: soft Neurological exam: PRESENT: alert Results Laboratory Results: 04/02/20 06:01 03/31/20 21:15 04/02/20 06:01 WBC 4.9 RBC 3.71 L Hgb 11.8 L Hct 35.1 L MCV 95 MCH 31.9 MCHC 33.7 RDW 13.1 Plt Count 119 L Seg Neutrophils % 56.5 03/31/20 16:21 Blood Blood Culture (PCR) - Final Staphylococcus Species 03/31/20 15:31 Blood Blood Culture (PCR) - Final Staphylococcus Species 03/31/20 03/31/20 03/31/20 10:40 10:40 21:15 Creatine Kinase 165 67 CK-MB (CK-2) 2.59 Troponin I 0.024 03/31/20 04/01/20 04/01/20 21:15 03:18 03:18 Creatine Kinase 152 CK-MB (CK-2) 0.98 2.20 Troponin I < 0.012 0.022 04/01/20 04/01/20 09:02 09:02 Creatine Kinase 144 CK-MB (CK-2) 2.12 Troponin I 0.019 Impressions: Chest X-Ray 03/31/20 13:32 IMPRESSION: NO ACUTE RADIOGRAPHIC FINDING IN THE CHEST. Assessment & Plan - Diagnosis (1) Syncope Qualifiers: Encounter type: initial encounter Is this a current diagnosis for this admission?: Yes Plan: Transthoracic echocardiogram result reviewed (2) Uncontrolled diabetes mellitus Qualifiers: Diabetes mellitus type: type 2 Glycemic state: with hyperglycemia Qualified Code(s): E11.65 - Type 2 diabetes mellitus with hyperglycemia Is this a current diagnosis for this admission?: Yes (3) Acute kidney injury Is this a current diagnosis for this admission?: Yes - Time Time Spent with patient: 25-34 minutes Level of Care: IMCU
[2020-04-02] MEDS: SIMVASTATIN 10 MG TABLET PO SCH (21:30)
[2020-04-02] MEDS: LATANOPROST 0.005% OPH SOLN 2.5 ML OS SCH (21:30)
[2020-04-03] MEDS: HEPARIN SOD (PORCINE) 5,000 UNIT/ML 1 ML VIAL SUBCUT SCH ×2 (05:53→15:27)
[2020-04-03] MEDS: NORMAL SALINE 1000 ML 1,000 ML IV PRN (06:15)
[2020-04-03 06:27] LABS: ABSOLUTE EOSINOPHILS # (AUTO) 0.2 10^3/uL (0.0-0.6); ABSOLUTE LYMPHOCYTES (AUTO) 1.1 10^3/uL (0.5-4.7); ABSOLUTE MONOCYTES (AUTO) 0.5 10^3/uL (0.1-1.4); ABSOLUTE NEUT (AUTO) 2.9 10^3/uL (1.7-8.2); BASOPHILS % (AUTO) 0.9 % (0-2); EOSINOPHILS % (AUTO) 3.8 % (0-6); HEMATOCRIT 35.4 % (37.9-51.0); HEMOGLOBIN 12.1 g/dL (13.5-17.0); LYMPHOCYTES % (AUTO) 23.1 % (13-45); MEAN CORPUSCULAR HEMOGLOBIN 32.5 pg (27.0-33.4); MEAN CORPUSCULAR HGB CONC 34.2 g/dL (32.0-36.0); MEAN CORPUSCULAR VOLUME 95 fl (80-97); MONOCYTES % (AUTO) 10.5 % (3-13); PLATELET COUNT 117 10^3/uL (150-450); RED BLOOD COUNT 3.72 10^6/uL (4.35-5.55); RED CELL DISTRIBUTION WIDTH 13.1 % (11.5-14.0); SEGMENTED NEUTROPHILS % (AUTO) 61.7 % (42-78); TOTAL CELLS COUNTED % (AUTO) 100 %; WHITE BLOOD COUNT 4.6 10^3/uL (4.0-10.5)
--- NOTE | 2020-04-03 08:19 | Progress Note ---
Provider Note Provider Note: [facility] ID Telephone Advice Consultation Chart reviewed. Patient is a 79-year-old man with pacemaker and poorly contr olled Diabetes. He was admitted due to uncontrolled blood glucose. He has been on a complete regimen and still having elevated blood glucose. He apparently had a syncope. The pacemaker was interrogated in the ED and it was working fine. Patient also has a history of nephrectomy with CKD 3. He has been afebrile and BP improved after IVF. Blood cultures on admission ahd 2 sets positive for CoNS. He had a TTE of good quality that didn't demonstrate valvular vegetations. No head imaging available. He has not been on antibiotics. ID consulted for recommendations. PMH: DM CKD3 PSH: Pacemaker Nephrectomy Allergies: No Known Allergies Allergy (Verified 03/31/20 10:49) Medications: Aspirin [Aspirin 81 mg Chewable Tablet] 81 mg PO DAILY 03/31/20 Brimonidine Tartrate [Alphagan 0.2% Oph Soln 5 ml] 1 drop OU TID 03/31/20 Carvedilol [Coreg 12.5 mg Tablet] 12.5 mg PO Q12 03/31/20 Cholecalciferol (Vitamin D3) [Vitamin D3 1000 Unit Tablet] 5,000 unit PO DAILY 03/31/20 Dapagliflozin Propanediol [Farxiga] 10 mg PO DAILY 03/31/20 Dorzolamide/Timolol/Pf [Dorzolamide-Timolol 2%-0.5%] 1 drop OU Q12 03/31/20 Ferrous Sulfate [Feosol 325 mg Tablet] 325 mg PO DAILY 03/31/20 Furosemide [Lasix 20 mg Tablet] 20 mg PO QAM 03/31/20 Glimepiride [Amaryl] 2 mg PO DAILY 03/31/20 Insulin Glargine,Hum.rec.anlog [Lantus Insulin 100 Unit/mL Insulin Pen] 50 unit SUBCUT DAILY 03/31/20 Isosorbide Mononitrate [Ismo 20 Mg Tablet] 20 mg PO Q12 03/31/20 Latanoprost/Pf [Latanoprost 0.005% Eye Drop] 1 drop OS QHS 03/31/20 Losartan/Hydrochlorothiazide [Hyzaar 100-12.5 Tablet] 1 tab PO DAILY 03/31/20 Magnesium Oxide [Magnesium] 250 mg PO DAILY 03/31/20 Simvastatin 20 mg PO QHS 03/31/20 Vital Signs: Temp Pulse Resp BP Pulse Ox 98.0 F 71 18 135/77 H 98 04/03/20 03:20 04/03/20 03:20 04/03/20 03:20 04/03/20 03:20 04/03/20 03:20 Intake & Output 04/02/20 04/03/20 04/04/20 06:59 06:59 06:59 Intake Total 3053 3227 Output Total 1178 1275 Balance 1879 1952 Weight 94.8 kg 94.4 kg Weight/Height Weight 94.4 kg Height 6 ft 1 in Laboratories: 04/03/20 06:12 03/31/20 21:15 MCV 95 fl (80-97) 04/03/20 06:12 MCH 32.5 pg (27.0-33.4) 04/03/20 06:12 MCHC 34.2 g/dL (32.0-36.0) 04/03/20 06:12 RDW 13.1 % (11.5-14.0) 04/03/20 06:12 Seg Neutrophils % 61.7 % (42-78) 04/03/20 06:12 Chloride 94 mmol/L (98-107) L 03/31/20 21:15 Carbon Dioxide 36 mmol/L (22-30) H D 03/31/20 21:15 Anion Gap 5 (5-19) 03/31/20 21:15 Est GFR ( Amer) 44 (>60) L 03/31/20 21:15 Glucose 104 mg/dL (75-110) 03/31/20 21:15 Calcium 9.0 mg/dL (8.4-10.2) 03/31/20 21:15 Total Bilirubin 1.0 mg/dL (0.2-1.3) 03/31/20 10:40 AST 24 U/L (17-59) 03/31/20 10:40 Alkaline Phosphatase 88 U/L (38-126) 03/31/20 10:40 Total Protein 6.9 g/dL (6.3-8.2) 03/31/20 10:40 Albumin 3.5 g/dL (3.5-5.0) 03/31/20 10:40 TSH 1.91 uIU/mL (0.47-4.68) 03/31/20 10:40 Free T4 0.80 ng/dL (0.78-2.19) 03/31/20 10:40 Urine Color STRAW 03/31/20 12:00 Urine Appearance CLEAR 03/31/20 12:00 Urine pH 6.0 (5.0-9.0) 03/31/20 12:00 Ur Specific [place] 1.010 03/31/20 12:00 Urine Protein NEGATIVE mg/dL (NEGATIVE) 03/31/20 12:00 Urine Glucose (UA) >=500 mg/dL (NEGATIVE) H 03/31/20 12:00 Urine Ketones NEGATIVE mg/dL (NEGATIVE) 03/31/20 12:00 Urine Blood NEGATIVE (NEGATIVE) 03/31/20 12:00 Urine Nitrite NEGATIVE (NEGATIVE) 03/31/20 12:00 Ur Leukocyte Esterase NEGATIVE (NEGATIVE) 03/31/20 12:00 Urine WBC (Auto) 0 /HPF 03/31/20 12:00 Urine RBC (Auto) 1 /HPF 03/31/20 12:00 03/31/20 12:00 Clean Catch Midstream Urine Culture - Final Mixed Urogenital Trinh 03/31/20 16:21 Blood Blood Culture (PCR) - Final Staphylococcus Species 03/31/20 15:31 Blood Blood Culture (PCR) - Final Staphylococcus Species 03/31/20 03/31/20 03/31/20 10:40 10:40 21:15 Creatine Kinase 165 67 CK-MB (CK-2) 2.59 Troponin I 0.024 03/31/20 04/01/20 04/01/20 21:15 03:18 03:18 Creatine Kinase 152 CK-MB (CK-2) 0.98 2.20 Troponin I < 0.012 0.022 04/01/20 04/01/20 09:02 09:02 Creatine Kinase 144 CK-MB (CK-2) 2.12 Troponin I 0.019 Radiology: Chest X-Ray 03/31/20 13:32 IMPRESSION: NO ACUTE RADIOGRAPHIC FINDING IN THE CHEST. Assessment and Recommendations: Patient admitted due to syncope and uncontrolled DM. He has a pacemaker and positive blood cultures with CoNS. These are usually skin contaminants but in the setting of pacemaker, these can represent true infection due to biofilm associated to cardiac device. It is not clear if the encephalopathy was met abolic due to uncontrolled DM or if a vascular event. If there is a true infection, blood glucose will be difficult to control as well. A TTE was negative but per guidelines a BRIGETTE is needed to rule out cardiac device associated bacteremia. May repeat blood cultures (3 sets) and if persistent growth, then would pursue a BRIGETTE and consider antibiotic therapy for cardiac device infection. Please call if questions. Gayle Reno MD [facility] [phone]
[2020-04-03] MEDS: INSULIN LISPRO 100 UNIT/ML 3 ML VIAL SUBCUT SCH ×3 (09:48→17:46)
[2020-04-03] MEDS: FERROUS SULFATE 325 MG TABLET PO SCH (09:50)
[2020-04-03] MEDS: MAGNESIUM OXIDE 400 MG TABLET PO SCH (09:50)
[2020-04-03] MEDS: LOSARTAN POTASSIUM 50 MG TABLET PO SCH (09:51)
[2020-04-03] MEDS: CHOLECALCIFEROL (D3) 1,000 UNIT (25 MCG) TABLET PO SCH (09:51)
[2020-04-03] MEDS: GLIMEPIRIDE 1 MG TABLET PO SCH (09:54)
[2020-04-03] MEDS: CARVEDILOL 12.5 MG TABLET PO SCH (09:54)
[2020-04-03] MEDS: ASPIRIN 81 MG TABLET, CHEWABLE PO SCH (09:54)
[2020-04-03] MEDS: DORZOLAMIDE HCL 2%/TIMOLOL MALEAT 0.5% OPH SOLN 10 ML OU SCH (09:55)
[2020-04-03] MEDS: ISOSORBIDE MONONITRATE 20 MG TABLET PO SCH (09:55)
[2020-04-03] MEDS: BRIMONIDINE TARTRATE 0.2% OPH SOLN 5 ML OU SCH ×3 (09:56→18:46)
[2020-04-03] MEDS: CEFTRIAXONE 1 GM/D5W RTU 1 GM/50 ML RTUPB IV SCH (09:56)
[2020-04-03] MEDS: HYDROCHLOROTHIAZIDE 12.5 MG TABLET PO SCH (10:10)
[2020-04-03] MEDS: INSULIN GLARGINE,HUM.REC.ANLOG 1,000 UNIT/10 ML VIAL SUBCUT SCH (13:04)
[2020-04-03 18:28] VITALS: BP 111/66
--- NOTE | 2020-04-03 20:51 | PDOC DISCHARGE SUMMARY ---
Impression - Admit/DC Date/PCP Admission Date/Primary Care Provider: 03/31/20 20:12 LASHONDA DE LA CRUZ MD Discharge Date: 04/03/20 - Discharge Diagnosis (1) Syncope Is this a current diagnosis for this admission?: Yes (2) Uncontrolled diabetes mellitus Is this a current diagnosis for this admission?: Yes (3) Acute kidney injury Is this a current diagnosis for this admission?: Yes - Additional Information Resuscitation Status: Full Code Discharge Diet: Diabetic Referrals: LASHONDA DE LA CRUZ MD [Primary Care Provider] - Follow up as needed Home Medications: Aspirin [Aspirin 81 mg Chewable Tablet] 81 mg PO DAILY 03/31/20 Brimonidine Tartrate [Alphagan 0.2% Oph Soln 5 ml] 1 drop OU TID 03/31/20 Carvedilol [Coreg 12.5 mg Tablet] 12.5 mg PO Q12 03/31/20 Cholecalciferol (Vitamin D3) [Vitamin D3 1000 Unit Tablet] 5,000 unit PO DAILY 03/31/20 Dapagliflozin Propanediol [Farxiga] 10 mg PO DAILY 03/31/20 Dorzolamide/Timolol/Pf [Dorzolamide-Timolol 2%-0.5%] 1 drop OU Q12 03/31/20 Ferrous Sulfate [Feosol 325 mg Tablet] 325 mg PO DAILY 03/31/20 Glimepiride [Amaryl] 2 mg PO DAILY 03/31/20 Insulin Glargine,Hum.rec.anlog [Lantus Insulin 100 Unit/mL Insulin Pen] 50 unit SUBCUT DAILY 03/31/20 Isosorbide Mononitrate [Ismo 20 mg Tablet] 20 mg PO Q12 03/31/20 Latanoprost/Pf [Latanoprost 0.005% Eye Drop] 1 drop OS QHS 03/31/20 Losartan/Hydrochlorothiazide [Hyzaar 100-12.5 Tablet] 1 tab PO DAILY 03/31/20 Magnesium Oxide [Magnesium] 250 mg PO DAILY 03/31/20 Simvastatin 20 mg PO QHS 03/31/20 History of Present Illiness History of Present Illness: JORGE OSPINA is a 79 year old male, He has a history of recently poorly controlled diabetes, the blood sugar has been erratic lately and made efforts to prescribe evidence-based medication including GLP-1 agonist, SGLT 1 inhibitor unfortunately patient medical insurance does not cover this medication or patient co-pay is too high for patient to afford it.The history of his presentation is not very clear but it seems that he had episode of loss of consciousness not sure if this was related to his uncontrolled diabetes or if it is cardiac related. He has a pacemaker, this was interrogated in the emergency room seems to be in good working condition. He also had a transient low blood pressure according to the history when he was transported by EMS, he was given IV fluid with normalization of the blood pressure. 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 He was treated with IV fluids, blood culture was drawn demonstrated staph epi mostly contamination there was no evidence of infection in this patient. A transthoracic echo was done, it demonstrated preserved ejection fraction of left ventricle there is no valvular heart disease.Blood glucose was well controlled in the hospital Physical Exam Vital Signs: Temp Pulse Resp BP Pulse Ox 98.1 F 74 18 111/66 100 04/03/20 18:00 04/03/20 18:00 04/03/20 18:00 04/03/20 18:00 04/03/20 18:00 Intake & Output 04/02/20 04/03/20 04/04/20 06:59 06:59 06:59 Intake Total 3054 3227 714 Output Total 1175 1275 700 Balance 1879 1952 14 Weight 94.8 kg 94.4 kg General appearance: PRESENT: no acute distress Eye exam: PRESENT: PERRLA Respiratory exam: PRESENT: clear to auscultation mell Cardiovascular exam: PRESENT: +S1, +S2 GI/Abdominal exam: PRESENT: soft Neurological exam: PRESENT: alert, CN II-XII grossly intact Results Laboratory Results: WBC 4.6 10^3/uL (4.0-10.5) 04/03/20 06:12 RBC 3.72 10^6/uL (4.35-5.55) L 04/03/20 06:12 Hgb 12.1 g/dL (13.5-17.0) L 04/03/20 06:12 Hct 35.4 % (37.9-51.0) L 04/03/20 06:12 MCV 95 fl (80-97) 04/03/20 06:12 MCH 32.5 pg (27.0-33.4) 04/03/20 06:12 MCHC 34.2 g/dL (32.0-36.0) 04/03/20 06:12 RDW 13.1 % (11.5-14.0) 04/03/20 06:12 Plt Count 117 10^3/uL (150-450) L 04/03/20 06:12 Lymph % (Auto) 23.1 % (13-45) 04/03/20 06:12 [place] % (Auto) 10.5 % (3-13) 04/03/20 06:12 Eos % (Auto) 3.8 % (0-6) 04/03/20 06:12 Baso % (Auto) 0.9 % (0-2) 04/03/20 06:12 Absolute Neuts (auto) 2.9 10^3/uL (1.7-8.2) 04/03/20 06:12 Absolute Lymphs (auto) 1.1 10^3/uL (0.5-4.7) 04/03/20 06:12 Absolute Monos (auto) 0.5 10^3/uL (0.1-1.4) 04/03/20 06:12 Absolute Eos (auto) 0.2 10^3/uL (0.0-0.6) 04/03/20 06:12 Absolute Basos (auto) 0.0 10^3/uL (0.0-0.2) 04/03/20 06:12 Seg Neutrophils % 61.7 % (42-78) 04/03/20 06:12 Sodium 134.6 mmol/L (137-145) L 03/31/20 21:15 Potassium 5.2 mmol/L (3.6-5.0) H D 03/31/20 21:15 Chloride 94 mmol/L (98-107) L 03/31/20 21:15 Carbon Dioxide 36 mmol/L (22-30) H D 03/31/20 21:15 Anion Gap 5 (5-19) 03/31/20 21:15 BUN 36 mg/dL (7-20) H 03/31/20 21:15 Creatinine 1.79 mg/dL (0.52-1.25) H 03/31/20 21:15 Est GFR ( Amer) 44 (>60) L 03/31/20 21:15 Est GFR (MDRD) Non-Af 37 (>60) L 03/31/20 21:15 Glucose 104 mg/dL (75-110) 03/31/20 21:15 POC Glucose 158 mg/dL (70-110) H 04/03/20 17:12 Hemoglobin A1c % 9.5 % (4.7-6.0) H 04/01/20 03:18 Calcium 9.0 mg/dL (8.4-10.2) 03/31/20 21:15 Total Bilirubin 1.0 mg/dL (0.2-1.3) 03/31/20 10:40 Direct Bilirubin 0.0 mg/dL (0.0-0.4) 03/31/20 10:40 Neonat Total Bilirubin Not Reportable 03/31/20 10:40 Neonat Direct Bilirubin Not Reportable 03/31/20 10:40 Neonat Indirect Bili Not Reportable 03/31/20 10:40 AST 24 U/L (17-59) 03/31/20 10:40 ALT 19 U/L (<50) 03/31/20 10:40 Alkaline Phosphatase 88 U/L (38-126) 03/31/20 10:40 Creatine Kinase 144 U/L (55-170) 04/01/20 09:02 CK-MB (CK-2) 2.12 ng/mL (<4.55) 04/01/20 09:02 Troponin I 0.019 ng/mL 04/01/20 09:02 Total Protein 6.9 g/dL (6.3-8.2) 03/31/20 10:40 Albumin 3.5 g/dL (3.5-5.0) 03/31/20 10:40 TSH 1.91 uIU/mL (0.47-4.68) 03/31/20 10:40 Free T4 0.80 ng/dL (0.78-2.19) 03/31/20 10:40 Urine Color STRAW 03/31/20 12:00 Urine Appearance CLEAR 03/31/20 12:00 Urine pH 6.0 (5.0-9.0) 03/31/20 12:00 Ur Specific [place] 1.010 03/31/20 12:00 Urine Protein NEGATIVE mg/dL (NEGATIVE) 03/31/20 12:00 Urine Glucose (UA) >=500 mg/dL (NEGATIVE) H 03/31/20 12:00 Urine Ketones NEGATIVE mg/dL (NEGATIVE) 03/31/20 12:00 Urine Blood NEGATIVE (NEGATIVE) 03/31/20 12:00 Urine Nitrite NEGATIVE (NEGATIVE) 03/31/20 12:00 Urine Bilirubin NEGATIVE (NEGATIVE) 03/31/20 12:00 Urine Urobilinogen NEGATIVE mg/dL (<2.0) 03/31/20 12:00 Ur Leukocyte Esterase NEGATIVE (NEGATIVE) 03/31/20 12:00 Urine WBC (Auto) 0 /HPF 03/31/20 12:00 Urine RBC (Auto) 1 /HPF 03/31/20 12:00 Urine Mucus (Auto) RARE /LPF 03/31/20 12:00 Urine Ascorbic Acid NEGATIVE (NEGATIVE) 03/31/20 12:00 03/31/20 03/31/20 04/01/20 10:40 21:15 03:18 CK-MB (CK-2) 2.59 0.98 2.20 Troponin I 0.024 < 0.012 0.022 04/01/20 09:02 CK-MB (CK-2) 2.12 Troponin I 0.019 Impressions: Chest X-Ray 03/31/20 13:32 IMPRESSION: NO ACUTE RADIOGRAPHIC FINDING IN THE CHEST. Plan Time Spent: Less than 30 Minutes Stroke Is this a Stroke Patient?: No Acute Heart Failure - Is this a Heart Failure Patient?: No
== END 2020-04-03 19:00 | disposition home or self-care (01) | DRG 638 ==
LOC: ER 10:32 → EH 16:18 → 3S 18:12 → OBSVTOIN 20:12 → 3S 04-02 19:49
PROVIDERS: ADMIT Internal Medicine; ATTEND Internal Medicine
DX: E11.65 Type 2 diabetes mellitus with hyperglycemia (principal); I13.0 Hypertensive heart and chronic kidney disease with heart failure and stage 1 through stage 4 chronic kidney disease, or unspecified chronic kidney disease; N17.9 Acute kidney failure, unspecified; R55 Syncope and collapse; E11.22 Type 2 diabetes mellitus with diabetic chronic kidney disease; E11.29 Type 2 diabetes mellitus with other diabetic kidney complication; I50.9 Heart failure, unspecified; N18.3 Chronic kidney disease, stage 3 (moderate); E78.00 Pure hypercholesterolemia, unspecified; I25.2 Old myocardial infarction; Z79.84 Long term (current) use of oral hypoglycemic drugs; Z79.4 Long term (current) use of insulin; Z79.899 Other long term (current) drug therapy; Z95.810 Presence of automatic (implantable) cardiac defibrillator
CPT/HCPCS: 36415; 71045; 80053; 81001; 82550; 82553; 82962; 83036; 84439; 84443; 84484; 85025; 87040; 87077; 87086; 87150; 87186; 93005; 93010; 93306; 96360; 96361; 99285; J0696; J1815; J3490; J7030

== ENCOUNTER → 2020-10-23 | Outpatient (CLI) | payer MEDICARE ==
--- NOTE | 2020-10-23 13:10 | RADIOLOGY REPORT (SQ) ---
EXAM DESCRIPTION: CT CHEST WITHOUT IMAGES COMPLETED DATE/TIME: 10/23/2020 12:57 pm REASON FOR STUDY: CHRONIC OBSTRUCTIVE PULMONARY DISEASE, UNSPECIFIED J44.9 CHRONIC OBSTRUCTIVE PULM ONARY DISEASE, UNSPECIFIED COMPARISON: 01/04/2008 TECHNIQUE: CT scan performed of the chest without intravenous contrast. Images reviewed with lung, soft tissue and bone windows. Reconstructed coronal and sagittal MPR images reviewed. All images st ored on PACS. All CT scanners at this facility use dose modulation, iterative reconstruction, and/or weight based d osing when appropriate to reduce radiation dose to as low as reasonably achievable (ALARA). [facility]: Dose Right [facility]: CareDose [facility]: Dose Right [facility]: Teradose 4D [facility]: [employer] RADIATION DOSE: mGy. LIMITATIONS: No technical limitations. FINDINGS: LUNGS AND PLEURA: Multifocal peripheral ground-glass opacities. No suspicious nodules or masses. Left lung base pneumatoceles, unchanged. No pleural effusion. No pneumothorax. HILAR AND MEDIASTINAL STRUCTURES: No masses or lymphadenopathy. Ectatic thoracic aorta. HEART AND VASCULAR STRUCTURES: Cardiomegaly. No pericardial effusion. UPPER ABDOMEN: Limited exam. Cholelithiasis without evidence of cholecystitis. Left hepatic cyst. Right renal cyst. Status post left nephrectomy. No acute findings. THYROID AND OTHER SOFT TISSUES: Left chest wall transvenous pacer. Bilateral gynecomastia (left grea ter than right. BONES: No significant finding. HARDWARE: None in the chest. OTHER: No other significant findings. IMPRESSION: In the appropriate clinical setting, the appearance of multifocal peripheral ground-glas s opacities is consistent with multi lobar pneumonia. Given distribution, recommend consideration fo r atypical etiologies to include viral/COVID. TECHNICAL DOCUMENTATION: JOB ID: [id number] Quality ID # [id number]: Final reports with documentation of one or more dose reduction techniques (e.g., Au tomated exposure control, adjustment of the mA and/or kV according to patient size, use of iterative reconstruction technique) 2010 [employer]- All Rights Reserved Reading location - IP/workstation name: [email or web address]
== END ==
LOC: RAD 12:43
PROVIDERS: ATTEND Internal Medicine
DX: J44.9 Chronic obstructive pulmonary disease, unspecified (principal); I51.7 Cardiomegaly; K80.20 Calculus of gallbladder without cholecystitis without obstruction; K76.89 Other specified diseases of liver; N62 Hypertrophy of breast
CPT/HCPCS: 71250